=== PATIENT | female | born 1970 | race Caucasian/White ===

== ENCOUNTER 2019-03-28 13:47 | Emergency (ER) | payer BC, MEDICARE ==
--- NOTE | 2019-03-28 14:03 | Emergency Department Record ---
History of Present Illness - General Chief Complaint: Abdominal Pain Stated Complaint: UPPER BACK PAIN/CHILLS Time Seen by Provider: 03/28/19 14:02 Source: Patient Mode of Arrival: Ambulatory Limitations: No limitations - History of Present Illness Initial Comments: The patient is here due to RUQ AP off and on for 4 days. The pain seems to come and go and is sometimes worse after eating. She has had no nausea or vomiting with the pain and she also denies any fever, chills, CP, SOB, lower AP or dysuria. The patient is concerned she may have a GB issue. The patient also states the pain is better today than over the last few days and she has been constipated. She denies any recent fever, dental work, or arm or leg numbness or weakness. MD Complaint: Abdominal pain Onset/Timin -: Days(s) Location: RUQ Radiation: None Migration to: No migration Severity: Moderate Severity scale (1-10): 5 Quality: Fullness Treatments Prior to Arrival: Other - Related Data Patient : No Hx Age of Menopause: 35 Home Medications Medication Instructions Recorded Confirmed Last Taken Cetirizine HCl 10 mg PO DAILY 03/28/19 03/28/19 Unknown Cholecalciferol (Vitamin D3) 5,000 iu PO DAILY 03/28/19 03/28/19 Unknown [Vitamin D3] Clonazepam 0.5 mg PO ASDIR 03/28/19 03/28/19 Unknown Estradiol 0.075 % TOP WEEKLY 03/28/19 03/28/19 Unknown Etanercept [Enbrel] 50 mg WEEKLY 03/28/19 03/28/19 Unknown Quetiapine Fumarate [Seroquel Xr] 150 mg PO QHS 03/28/19 03/28/19 Unknown Allergies Allergy/AdvReac Type Severity Reaction Status Date / Time erythromycin base Allergy VOMITING Verified 03/28/19 14:02 Sulfa (Sulfonamide Allergy RASH Verified 03/28/19 14:02 Antibiotics) Travel Screening - Travel/Exposure Within Last 30 Days Have you traveled within the last 30 days?: No - Travel/Exposure Within Last Year Have you traveled outside the [place] in the last year?: No - Additonal Travel Details Have you been exposed to anyone with a communicable illness?: No - Travel Symptoms Symptom Screening: None Review of Systems Constitutional: Denies: Chills, Fever Eyes: Denies: Eye discharge ENT: Denies: Congestion Respiratory: Denies: Cough, Dyspnea Past Medical History - SOCIAL HISTORY Smoking Status: Never smoker Alcohol Use: None Drug Use: Occasional Drug Use Detail:: Marijuana - RESPIRATORY Hx Respiratory Disorders: No - CARDIOVASCULAR Hx Cardio Disorders: No - NEURO Hx Neuro Disorders: No - GI Hx Crohn's Disease: Yes Hx Irritable Bowel: Yes - Hx Genitourinary Disorders: No - ENDOCRINE Hx Endocrine Disorders: Yes Comment:: HASHIMOTOS - MUSCULOSKELETAL Hx Arthritis: Yes - PSYCH Hx Anxiety: Yes Hx Depression: Yes - HEMATOLOGY/ONCOLOGY Hx Hematology/Oncology Disorders: No Family Medical History Any Significant Family History?: No Physical Exam - General General Appearance: Alert, Oriented x3, Cooperative, No acute distress - Head Head exam: Atraumatic, Normocephalic, Normal inspection - Eye Eye exam: Normal appearance, PERRL - Neck Neck exam: Normal inspection, Full ROM. negative: Tenderness - Respiratory Respiratory exam: Normal lung sounds bilaterally. negative: Respiratory distress - Cardiovascular Cardiovascular Exam: Regular rate, Normal rhythm, Normal heart sounds - GI/Abdominal GI/Abdominal exam: Soft, Normal bowel sounds, Tenderness (There is mild RUQ tenderness to palpation but the abdomen is very soft.). negative: Distended, Guarding, Rebound, Rigid - Extremities Extremities exam: Normal inspection, Full ROM, Normal capillary refill. negative: Tenderness - Neurological Neurological exam: Alert. negative: Motor sensory deficit Course Vital Signs 03/28/19 13:52 Temperature 97.9 F Pulse Rate 99 H Respiratory 18 Rate Blood Pressure 145/88 Pulse Ox 98 - Reevaluation(s) Reevaluation #1: The patient is doing a lot better at this time. We are still waiting on her CT report and her pain is completely gone. She is resting comfortably with no complaints. 03/28/19 16:32 Reevaluation #2: The patient continues to do well with no pain or fever here. Unfortunately the CT report does show possible diskitis or a spinal infection around T11-12 and an MRI is recommended. Due to not having any MRI here I did discuss the case with Dr. Emerson at [facility] and she does accept the patient for transfer for further workup. 03/28/19 17:09 Medical Decision Making - Data Complexity MDM Data: Labs Ordered and/or Reviewed, X-Ray Ordered and/or Reviewed - Lab Data Result diagrams: 03/28/19 14:42 03/28/19 14:42 - Radiology Data Radiology results: Report reviewed (US: Neg for abdominal abnormalities. Abd CT: Possible diskitis T11-12 are or deep space infection. MRI recommended.) Disposition Disposition: Transfer Clinical Impression: Discitis Qualifiers: Spinal region: unspecified Qualified Code(s): M46.40 - Discitis, unspecified, site unspecified Disposition: Acute Care Hospital Transfer Transfer To: [facility] Reason For Transfer: MRI Accepting Physician: Ki Time Discussed w/Accepting Physician: 17:11 Condition: (2) Stable Forms: Patient Portal Access Time of Disposition: 17:11 Quality - Quality Measures Quality Measures: N/A - Blood Pressure Screening View Details: Yes Does Patient Have Any of the Following: No Blood Pressure Classification: Normal BP Reading Systolic Measurement: 115 Diastolic Measurement: 65 Screening for High Blood Pressure: < Normal BP, F/U Not Required > [G8783]
[2019-03-28 14:27] LABS: URINE APPEARANCE CLEAR; URINE BILIRUBIN SMALL (NEGATIVE); URINE BLOOD LARGE (NEGATIVE); URINE COLOR YELLOW; URINE GLUCOSE (UA) NEGATIVE (NEGATIVE); URINE KETONE TRACE (NEGATIVE); URINE LEUKOCYTE ESTERASE NEGATIVE (NEGATIVE); URINE NITRITE NEGATIVE (NEGATIVE); URINE PROTEIN NEGATIVE (NEGATIVE); URINE UROBILINOGEN 0.2 E.U./dL (0.20 - 1.00)
[2019-03-28 14:34] LABS: URINE WBC NONE SEEN (0-2/hpf)
[2019-03-28 14:35] LABS: URINE MUCUS HEAVY
[2019-03-28] MEDS: 0.9 % SODIUM CHLORIDE 1,000 ML BAG IV ONE (14:53)
[2019-03-28] MEDS: ACETAMINOPHEN 1,000 MG/100 ML BTL IVPB ONE (14:55)
[2019-03-28 15:03] LABS: ABSOLUTE NEUTROPHIL COUNT 11.33; BASO % 0.1 % (0-6); EOS % 0.2 % (0-6); GRAN % 78.6 % (47-80); HEMATOCRIT 38.1 % (35.0-47.0); HEMOGLOBIN 12.8 gm/dl (11.6-16.0); MEAN CORPUSCULAR HEMOGLOBIN 31.9 pg (27-33); MEAN CORPUSCULAR HGB CONC 33.6 g/dl (32-36); MEAN PLATELET VOLUME 10.9 fl (7.4-10.4); MONO % 6.1 % (0-9); PLATELET COUNT 247 K/uL (130-400); RED BLOOD COUNT 4.01 M/uL (3.80-5.40); RED CELL DISTRIBUTION WIDTH 12.3 % (11.5-14.5); WHITE BLOOD COUNT W/O DIFF 14.4 K/uL (4.2-12.2)
[2019-03-28 15:10] LABS: BLOOD UREA NITROGEN 12 mg/dL (6-20); CREATININE 0.7 mg/dL (0.5-0.9); EST GLOMERULAR FILTRATION RATE > 60 mL/min
[2019-03-28 15:11] LABS: LIPASE 36 U/L (13-60); TOTAL PROTEIN 7.3 g/dL (6.6-8.7)
[2019-03-28 15:13] LABS: GLUCOSE,RANDOM 102 mg/dL (74-109)
[2019-03-28 15:15] LABS: ALT/SGPT 8 U/L (<33)
[2019-03-28 15:16] LABS: ALBUMIN 4.1 g/dL (4.0-5.0); ALKALINE PHOSPHATASE 60 U/L (35-104); AST/SGOT 11 U/L (10.0-35.0)
[2019-03-28] MEDS: KETOROLAC 30 MG/ML VIAL IVP ONE (15:23)
[2019-03-28 15:24] LABS: BILIRUBIN,DIRECT < 0.2 mg/dL (0-0.3)
--- NOTE | 2019-03-28 15:28 | ULTRASOUND REPORT ---
EXAMINATION: ABDOMEN, LIMITED EXAM DATE: 03/28/2019 3:22 PM TECHNIQUE: Sonography is performed in the right upper quadrant. INDICATION: Right upper quadrant pain and fullness for several days. COMPARISON: None FINDINGS: Pancreas: The pancreas as visualized appears normal. Liver: The liver is nonenlarged with normal echogenicity and no focal abnormality seen. There is flow in the portal vein. Intrahepatic ducts: Nondilated. Common bile duct: Nondilated measuring 3 mm. Gallbladder: No stones, wall thickening or adjacent fluid. Reported negative Al's sign. Right kidney: The right kidney appears normal. Other: No ascites. The abdominal aorta is normal in size and the intrahepatic portion of the inferior vena cava appears normal. IMPRESSION: No gallstones or biliary dilatation. No acute sonographic abnormality as above. Dictated by: Acosta Valentin MD on 03/28/2019 3:21 PM. .
--- NOTE | 2019-03-28 16:45 | CT SCAN REPORT ---
EXAMINATION: CT Abdomen and Pelvis without IV Contrast EXAM DATE: 03/28/2019 4:01 PM TECHNIQUE: Standard protocol CT imaging of the abdomen and pelvis was performed without intravenous c ontrast. INDICATION: R flank pain COMPARISON: Abdominal ultrasound 03/28/2019 ENCOUNTER: Not applicable CT ABDOMEN AND PELVIS FINDINGS: Lung Bases: Small right pleural effusion measures centimeters in thickness. Retrocrural soft tissue d ensity anterior to the T11 and T12 vertebral bodies measures approximately 30 mm transverse and 36 mm craniocaudal. Hepatobiliary: Liver has normal size. No liver lesions seen without IV contrast. There is no biliary dilatation and the gallbladder is unremarkable. Pancreas: No acute inflammatory changes. Spleen: The spleen is not enlarged. Adrenals: The adrenal glands are normal. Kidneys, Ureters, & Bladder: No hydronephrosis or renal calculi. No urinary bladder wall thickening o r calculi. Gastrointestinal: The stomach and small bowel are normal with no obstruction or inflammation. Appendi x is normal. The large bowel is within normal limits. Reproductive Organs: Uterus is absent. Lymphatic System: Mildly enlarged upper periaortic nodes measure up to 7 mm short axis diameter. Vasculature: Normal caliber abdominal aorta . Mild calcification. Peritoneum: No free fluid, free air, or inflammation Abdominal wall & Musculoskeletal: No bony erosions. Discogenic changes at L1-2 and L5-S1. Assessment of the solid organs, soft tissues, and vascular structures is overall limited on noncontra st imaging, IMPRESSION: Abnormality in the retrocrural space at the T11-12 level, possible discitis or other inflammatory abn ormality. Recommend further evaluation with MRI of the thoracic and lumbar spine before and after con trast. Small right pleural effusion. No renal calculi or hydronephrosis. Dictated by: Zoe Hi MD on 03/28/2019 4:21 PM. .
--- NOTE | 2019-03-28 17:22 | Emergency Department Record ---
History of Present Illness - General Chief Complaint: Abdominal Pain Stated Complaint: UPPER BACK PAIN/CHILLS Time Seen by Provider: 03/28/19 14:02 Source: Patient Mode of Arrival: Ambulatory Limitations: No limitations - History of Present Illness MD Complaint: Abdominal pain Onset/Timin -: Days(s) Location: RUQ Radiation: None Migration to: No migration Severity: Moderate Severity scale (1-10): 5 Quality: Fullness Treatments Prior to Arrival: Other - Related Data Patient : No Hx Age of Menopause: 35 Home Medications Medication Instructions Recorded Confirmed Last Taken Cetirizine HCl 10 mg PO DAILY 03/28/19 03/28/19 Unknown Cholecalciferol (Vitamin D3) 5,000 iu PO DAILY 03/28/19 03/28/19 Unknown [Vitamin D3] Clonazepam 0.5 mg PO ASDIR 03/28/19 03/28/19 Unknown Estradiol 0.075 % TOP WEEKLY 03/28/19 03/28/19 Unknown Etanercept [Enbrel] 50 mg WEEKLY 03/28/19 03/28/19 Unknown Quetiapine Fumarate [Seroquel Xr] 150 mg PO QHS 03/28/19 03/28/19 Unknown Allergies Allergy/AdvReac Type Severity Reaction Status Date / Time erythromycin base Allergy VOMITING Verified 03/28/19 14:02 Sulfa (Sulfonamide Allergy RASH Verified 03/28/19 14:02 Antibiotics) Travel Screening - Travel/Exposure Within Last 30 Days Have you traveled within the last 30 days?: No - Travel/Exposure Within Last Year Have you traveled outside the [place] in the last year?: No - Additonal Travel Details Have you been exposed to anyone with a communicable illness?: No - Travel Symptoms Symptom Screening: None Review of Systems Constitutional: Denies: Chills, Fever Eyes: Denies: Eye discharge ENT: Denies: Congestion Respiratory: Denies: Cough, Dyspnea Past Medical History - SOCIAL HISTORY Smoking Status: Never smoker Alcohol Use: None Drug Use: Occasional Drug Use Detail:: Marijuana - RESPIRATORY Hx Respiratory Disorders: No - CARDIOVASCULAR Hx Cardio Disorders: No - NEURO Hx Neuro Disorders: No - GI Hx Crohn's Disease: Yes Hx Irritable Bowel: Yes - Hx Genitourinary Disorders: No - ENDOCRINE Hx Endocrine Disorders: Yes Comment:: HASHIMOTOS - MUSCULOSKELETAL Hx Arthritis: Yes - PSYCH Hx Anxiety: Yes Hx Depression: Yes - HEMATOLOGY/ONCOLOGY Hx Hematology/Oncology Disorders: No Family Medical History Any Significant Family History?: No Physical Exam - General Limitations: No limitations - Neurological Neurological exam: Alert, Normal gait, Oriented X3, Reflexes normal, Other (The patient's motor and sensory exams are 5/5 and equal bilaterally to the lower extremities.). negative: Abnormal gait, Altered, Motor sensory deficit Course Vital Signs 03/28/19 03/28/19 03/28/19 13:52 15:15 16:00 Temperature 97.9 F Pulse Rate 99 H 78 Pulse Rate [ 84 Right] Respiratory 18 20 16 Rate Blood Pressure 145/88 115/65 Blood Pressure 147/93 [Left Arm] Pulse Ox 98 98 97 03/28/19 16:54 Temperature 98.3 F Pulse Rate Pulse Rate [ 80 Right] Respiratory 20 Rate Blood Pressure Blood Pressure 136/80 [Left Arm] Pulse Ox 98 Medical Decision Making - Lab Data Result diagrams: 03/28/19 14:42 03/28/19 14:42 Lab Results 03/28/19 03/28/19 03/28/19 Range/Units 14:20 14:42 14:42 WBC 14.4 H (4.2-12.2) K/uL RBC 4.01 (3.80-5.40) M/uL Hgb 12.8 (11.6-16.0) gm/dl Hct 38.1 (35.0-47.0) % MCV 95.0 (81-97) fl MCH 31.9 (27-33) pg MCHC 33.6 (32-36) g/dl RDW 12.3 (11.5-14.5) % Plt Count 247 (130-400) K/uL MPV 10.9 H (7.4-10.4) fl Gran % 78.6 (47-80) % Lymphocytes % 15.0 L (16-45) % Monocytes % 6.1 (0-9) % Eosinophils % 0.2 (0-6) % Basophils % 0.1 (0-6) % Absolute Neutrophils 11.33 Sodium 137 (136-145) mmol/L Potassium 3.5 (3.4-4.5) mmol/L Chloride 99 (98-107) mmol/L Carbon Dioxide 25.0 (22-29) mmol/L Anion Gap 13.0 (7-16) BUN 12 (6-20) mg/dL Creatinine 0.7 (0.5-0.9) mg/dL Estimated GFR > 60 mL/min Random Glucose 102 (74-109) mg/dL Calcium 9.3 (8.6-10.0) mg/dL Total Bilirubin 0.30 (0.2-1.0) mg/dL Direct Bilirubin < 0.2 (0-0.3) mg/dL AST 11 (10.0-35.0) U/L ALT 8 (<33) U/L Alkaline Phosphatase 60 (35-104) U/L Total Protein 7.3 (6.6-8.7) g/dL Albumin 4.1 (4.0-5.0) g/dL Lipase 36 (13-60) U/L Urine Color Yellow Urine Appearance Clear Urine pH 5.5 (5.0-8.0) Ur Specific [place] >= 1.030 (1.002-1.030) Urine Protein Negative (NEGATIVE) Urine Glucose (UA) Negative (NEGATIVE) Urine Ketones Trace H (NEGATIVE) Urine Blood Large H (NEGATIVE) Urine Nitrite Negative (NEGATIVE) Urine Bilirubin Small H (NEGATIVE) Urine Urobilinogen 0.2 (0.20 - 1.00) E.U./dL Ur Leukocyte Esterase Negative (NEGATIVE) Urine RBC 10 - 15 (NONE SEEN) Urine WBC None seen (0-2/hpf) Ur Epithelial Cells 7 - 10 (FEW) Urine Mucus Heavy Disposition Clinical Impression: Discitis Qualifiers: Spinal region: unspecified Qualified Code(s): M46.40 - Discitis, unspecified, site unspecified Disposition: Acute Care Hospital Transfer Condition: (2) Stable Forms: Patient Portal Access Quality - Quality Measures Quality Measures: N/A - Blood Pressure Screening View Details: Yes Does Patient Have Any of the Following: No Blood Pressure Classification: Normal BP Reading Systolic Measurement: 115 Diastolic Measurement: 65 Screening for High Blood Pressure: < Normal BP, F/U Not Required > [G8783]
== END 2019-03-28 17:48 | disposition short-term general hospital (02) ==
LOC: ER 13:47
DX: M46.40 Discitis, unspecified, site unspecified (principal); R10.11 Right upper quadrant pain
CPT/HCPCS: 74176; 76705; 80048; 80076; 81001; 83690; 85025; 85651; 86140; 96365; 96375; 99284; 99285; J1885; J7030